=== PATIENT | male | born 1980 | race Caucasian/White ===

== ENCOUNTER → 2018-09-12 | Outpatient (CLI) | payer BC ==
[~2018-09-12] MED LIST: ALBU90OI6 INH; ESCI10 PO; HUMIRA10 MG/0.2 SQ
== END | disposition home or self-care (01) ==
LOC: LAB SHORT 11:05 → PLD 11:05
DX: D22.5 Melanocytic nevi of trunk (principal)
CPT/HCPCS: 88305

== ENCOUNTER → 2018-10-09 | Outpatient (CLI) | payer BC | END | disposition home or self-care (01) | LOC: PLD 07:53 → LAB SHORT 07:53 | DX: D22.5 Melanocytic nevi of trunk (principal) | CPT/HCPCS: 88305 ==

== ENCOUNTER 2020-09-08 22:39 | Emergency (ER) | payer BC ==
[~2020-09-08] VITALS: Ht 193 cm; Wt 131.5 kg
[2020-09-09] MEDS ORDERED: OTEZLA1 EAC2 PO (02:08)
[2020-09-09] MEDS ORDERED: SKYRIZI75 MG/0.81 (02:08)
[2020-09-09] MEDS ORDERED: CEPH500 PO (06:52)
== END 2020-09-09 07:08 | disposition home or self-care (01) ==
LOC: ER 22:39
DX: S61.211A Laceration without foreign body of left index finger without damage to nail, initial encounter (principal); Z23 Encounter for immunization; Z79.899 Other long term (current) drug therapy; W26.0XXA Contact with knife, initial encounter
CPT/HCPCS: 12001; 73130; 90471; 90714; 99283-25; A9270

== ENCOUNTER → 2021-03-17 | Outpatient (CLI) | payer BC ==
[~2021-03-17] MED LIST changes: +CEPH500 PO; +OTEZLA1 EAC2 PO; +SKYRIZI75 MG/0.81
== END ==
LOC: LAB SHORT 11:25
DX: D48.5 Neoplasm of uncertain behavior of skin (principal); D23.5 Other benign neoplasm of skin of trunk; D22.5 Melanocytic nevi of trunk
CPT/HCPCS: 88305

== ENCOUNTER → 2021-07-13 | Outpatient (CLI) | payer BC | END | disposition home or self-care (01) | LOC: PLD 07:46 → LAB SHORT 07:46 | DX: D22.39 Melanocytic nevi of other parts of face (principal) | CPT/HCPCS: 88305 ==